=== PATIENT | female | born 1985 | race Hispanic/Latino ===

== ENCOUNTER 2019-02-20 15:36 | Emergency (ER) | payer OTHER ==
[2019-02-20] MEDS ORDERED: NAPROXEN 500 MG TABLET ONE (16:10)
== END 2019-02-20 17:41 | disposition home or self-care (01) ==
LOC: EDH 15:36
DX: S83.8X1A Sprain of other specified parts of right knee, initial encounter (principal); Z72.0 Tobacco use; W01.0XXA Fall on same level from slipping, tripping and stumbling without subsequent striking against object, initial encounter; Y93.89 Activity, other specified; Y92.098 Other place in other non-institutional residence as the place of occurrence of the external cause; Y99.8 Other external cause status
CPT/HCPCS: 73562

== ENCOUNTER 2023-04-27 09:27 | Emergency (ER) | payer MEDICAID, OTHER ==
[~2023-04-27] VITALS: Ht 152.4 cm; Wt 56.2 kg
[~2023-04-27 09:27] MED LIST: ACET500P24 PO; FERR-82 PO; PREN1TAB80 PO
[2023-04-27] MEDS ORDERED: DEXAMETHASONE SOD PHOSPHATE 4 MG/ML 1ML VIAL IM ONE (10:00)
[2023-04-27] MEDS ORDERED: ACETAMINOPHEN 500 MG TABLET PO ONE (10:00)
[2023-04-27 10:53] LABS: INFLUENZA TYPE A NEGATIVE FOR TYPE A (NEGATIVE); INFLUENZA TYPE B NEGATIVE FOR TYPE B (NEGATIVE); RAPID GROUP A STREP positive (NEGATIVE)
[2023-04-27] MEDS ORDERED: BENZ-39 PO (11:10)
[2023-04-27] MEDS ORDERED: ALBUHFA IH (11:10)
[2023-04-27] MEDS ORDERED: AMOX1TAB16 PO (11:10)
[2023-04-27 11:31] VITALS: TEMP 99.8
[2023-04-27 11:32] VITALS: BP 118/76; PULSE 100; RESP 18; O2SAT 100
== END 2023-04-27 11:40 | disposition home or self-care (01) ==
LOC: EDH 09:27
DX: J06.9 Acute upper respiratory infection, unspecified (principal); R50.9 Fever, unspecified; Z20.822 Contact with and (suspected) exposure to COVID-19; Z79.899 Other long term (current) drug therapy; Z98.890 Other specified postprocedural states
CPT/HCPCS: 99284; 71045; 87426; 87880; 87804 ×2; 96372; J1100